=== PATIENT | female | born 1990 | race Caucasian/White ===

== ENCOUNTER 2019-07-02 19:10 | Emergency (ER) | payer SELFPAY ==
[~2019-07-02] VITALS: Ht 157.5 cm; Wt 66.7 kg
--- NOTE | 2019-07-02 19:17 | NUR ---
SEEN AND EXAMINED BY .
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
[2019-07-02] MEDS ORDERED: OLANZAPINE 10 MG VIAL IM ONE (19:29)
[2019-07-02] MEDS: OLANZAPINE 10 MG VIAL IM ONE (19:35)
--- NOTE | 2019-07-02 19:35 | NUR ---
ER PHLEB AT BEDSIDE FOR BLOOD DRAW.
[2019-07-02 19:45] LABS: BASOPHILS # (AUTO) 0.1 /CMM (0.0-0.2); BASOPHILS % (AUTO) 0.8 % (0.0-2.0); EOSINOPHILS % (AUTO) 1.7 % (0.0-6.0); HEMATOCRIT 42 % (33-45); HEMOGLOBIN 14.1 g/dL (11.5-14.8); LYMPHOCYTES # (AUTO) 1.7 /CMM (0.8-4.8); LYMPHOCYTES % (AUTO) 22.1 % (20.0-44.0); MEAN CORPUSCULAR HGB CONC 34 g/dl (31.0-36.0); MEAN CORPUSCULAR VOLUME 99 fL (82-100); MONOCYTES # (AUTO) 0.5 /CMM (0.1-1.30); MONOCYTES % (AUTO) 6.3 % (2.0-12.0); NEUTROPHILS # (AUTO) 5.3 /CMM (1.8-8.9); NEUTROPHILS % (AUTO) 69.1 % (43.0-81.0); PLATELET COUNT (AUTO) 308 /CMM (150-450); RED BLOOD CELL COUNT(AUTO) 4.21 MIL/uL (4.0-5.2); WHITE BLOOD COUNT (AUTO) 7.6 K/uL (4.3-11.0)
[2019-07-02 20:13] LABS: ALANINE AMINOTRANSFERASE 26 U/L (12-78); ALBUMIN 4.1 g/dL (3.4-5.0); ALCOHOL, BLOOD < 3 mg/dL (0-0); ALKALINE PHOSPHATASE 74 U/L (46-116); ASPARTATE AMINOTRANSFERASE 21 U/L (15-37); BILIRUBIN,DIRECT 0.1 mg/dL (0.0-0.2); BILIRUBIN,TOTAL 0.5 mg/dL (0.2-1.0); CALCIUM, SERUM 9.2 mg/dL (8.5-10.1); CARBON DIOXIDE 28 mmol/L (21-32); CHLORIDE 101 mmol/L (98-107); GLUCOSE 98 mg/dL (74-106); POTASSIUM 3.5 mmol/L (3.5-5.1); SODIUM SERUM 139 mmol/L (136-145); TOTAL PROTEIN, SERUM 7.5 g/dL (6.4-8.2); UREA NITROGEN, BLOOD 12 mg/dL (7-18)
[2019-07-02 20:18] LABS: SALICYLATE 2.7 mg/dL (2.8-20.0)
[2019-07-02 20:19] LABS: ACETAMINOPHEN 0 ug/ml (10-30)
--- NOTE | 2019-07-02 21:04 | NUR ---
Checked restraints, able to move, circulation intact.
[2019-07-02] MEDS ORDERED: LORAZEPAM INJ 2 MG/ML VIAL ONE (21:23)
[2019-07-02] MEDS: LORAZEPAM INJ 2 MG/ML VIAL IM ONE (21:26)
--- NOTE | 2019-07-02 21:26 | NUR ---
URINE SPECIMEN COLLECTED AND SENT TO LAB.
[2019-07-02 21:30] LABS: APPEARANCE,URINE Slightly Cloudy (CLEAR); BILIRUBIN,URINE Negative (NEGATIVE); BLOOD, URINE Negative Ery/uL (NEGATIVE); COLOR,URINE Yellow (YELLOW); KETONES,URINE 15 (NEGATIVE); LEUKOCYTE ESTERASE ,URINE Negative (NEGATIVE); NITRITE, URINE Negative (NEGATIVE); PH,URINE 5.5 (5.0-8.0); PROTEIN,URINE Negative (NEGATIVE); UGLUCOSE Negative (NEGATIVE); UROBILINOGEN,URINE 0.2 EU/dL (0.2)
[2019-07-02 21:48] LABS: HYALINE CASTS, URINE Few /LPF (None Seen)
[2019-07-02 21:49] LABS: BACTERIA,URINE Few /HPF (None Seen); RBC,URINE 0-2 /HPF (0-2); SQUAMOUS EPITHELIAL CELL,UR Few /HPF (None Seen); WBC,URINE 0-2 /HPF (0-3)
--- NOTE | 2019-07-02 22:07 | NUR ---
Patient is resting comfortably in bed. Easily aroused. VSS.
--- NOTE | 2019-07-02 22:47 | NUR ---
Pt cooeprative, took off two restraints. Will continue to monitor.
--- NOTE | 2019-07-03 00:12 | NUR ---
Patient ambulated to restroom. Cooperative.
--- NOTE | 2019-07-03 00:21 | NUR ---
Pt cooperative, restraints switched. Provided with water.
--- NOTE | 2019-07-03 01:50 | NUR ---
Patient is resting comfortably in bed with eyes closed. Easily aroused. VSS.
--- NOTE | 2019-07-03 03:38 | NUR ---
Pt resting. Removed restrain. Pt only had one restrain.
--- NOTE | 2019-07-03 03:40 | NUR ---
Restrains removed. pt cooperative. Given food.
--- NOTE | 2019-07-03 09:56 | NUR ---
PT SPIT ON SECERITY CALLED [employer] PT. VERBALIZED UNDERSTANDING OF AFTERCARE INSTRUCTIONS.Patient discharged to home in stable condition. Written and verbal after care instructions given. Patient verbalizes understanding of instruction.
[2019-07-03 09:57] VITALS: BP 115/70
--- NOTE | 2019-07-03 10:57 | NUR ---
POLICE CAME TO DISCHARGE PT WOULDN'T LEVE Patient discharged to home in stable condition. Written and verbal after care instructions given. Patient verbalizes understanding of instruction.
== END 2019-07-03 10:57 | disposition home or self-care (01) ==
LOC: ER 19:11
DX: R46.1 Bizarre personal appearance (principal); Z59.0 Homelessness
CPT/HCPCS: 36415; 80048; 80076; 80305; 80307; 80329; 81001; 85025; 96372 ×2; 99285; G0480; J2060; J3490; 81000-TC